=== PATIENT | female | born 1995 | race Caucasian/White ===

== ENCOUNTER 2018-06-15 02:41 | Emergency (ER) | payer OTHER ==
[2018-06-15] MEDS: ACETAMINOPHEN 500 MG TAB PO (05:01)
== END 2018-06-15 05:17 | disposition home or self-care (01) ==
LOC: FTE 05:17
DX: S06.0X0A Concussion without loss of consciousness, initial encounter (principal); V49.49XA Driver injured in collision with other motor vehicles in traffic accident, initial encounter
CPT/HCPCS: 99283